=== PATIENT | male | born 1955 | race Caucasian/White ===

== ENCOUNTER → 2018-12-04 | Outpatient (CLI) | payer OTHER ==
--- NOTE | 2018-12-04 11:45 | 2DMMODE ---
[facility] [address] [place] [address] 2 D/M-MODE ECHOCARDIOGRAM Name: CINTIAROYER PAULA Room [facility]: [id number] ������������� Admission: 12/04/18 ������������� Attend Phys: Talon Leigh Discharge: ��� ������������� ��� Date of : 59 Date of Service: 12/04/18 1145 �� Report #: [id number] �������� ��������������������������������������������[id number] THIS REPORT FOR: //name// APPROVED REPORT Study performed: 12/04/2018 11:01:17 EXAM: Comprehensive 2D, Doppler, and color-flow Echocardiogram Patient Location: Out-Patient Status: routine BSA: 2.17 HR: 72 bpm BP: 144/83 mmHg Rhythm: NSR Other Information Study Quality: Good Indications Hypertension, family history of heart disease. 2D Dimensions RVDd: 37.63 mm IVSd: 8.73 (7-11mm) LVOT Diam: 20.45 (18-24mm) LVDd: 56.16 mm PWd: 10.07 (7-11mm) Ascending Ao: 30.30 (22-36mm) LVDs: 37.84 (25-40mm) Aortic Root: 37.49 mm Volumes Left Atrial Volume (Systole) Single Plane 4CH: 60.96 mL Single Plane 2CH: 57.63 mL LA ESV Index: 31.00 mL/m2 Aortic Valve AoV Peak Jude.: 1.52 m/s AO Peak Gr.: 9.27 mmHg LVOT Max P.37 mmHg LVOT Max V: 1.16 m/s MICHELE Vmax: 2.50 cm2 Mitral Valve E/A Ratio: 0.9 MV Decel. Time: 256.33 ms MV E Max Jude.: 0.64 m/s [facility] [address] [place] [address] 2 D/M-MODE ECHOCARDIOGRAM Name: ROYER CHAMBERLAIN Room #: [facility]#: [id number] ������������� Admission: 12/04/18 ������������� Attend Phys: Talon Leigh Discharge: ��� ������������� ��� Date of : 59 Date of Service: 12/04/18 1145 �� Report #: [id number] �������� ��������������������������������������������[id number] MV A Jude.: 0.75 m/s MV PHT: 74.33 ms IVRT: 92.27 ms Pulmonary Valve PV Peak Jude.: 1.48 m/s PV Peak Gr.: 8.71 mmHg Pulmonary Vein P Vein S: 0.70 m/s P Vein A: 0.34 m/s P Vein D: 0.45 m/s P Vein A Dur.: 96.9 msec P Vein S/D Ratio: 1.56 Tricuspid Valve TR Peak Jude.: 1.86 m/s RAP Estimate: 5.00 mmHg TR Peak Gr.: 13.91 mmHg PA Pressure: 19.00 mmHg Left Ventricle The left ventricle is normal size. There is normal LV segmental wall motion. There is normal left ventricular wall thickness. The left ventricular systolic function is normal. LVEF is 60%. Mild diastolic dysfunction is present (impaired relaxation pattern). Right Ventricle The right ventricle is normal size. The right ventricular systolic function is normal. Atria The left atrium size is normal. The right atrium size is normal. Aortic Valve The aortic valve is normal in structure. No aortic regurgitation is present. There is no aortic valvular stenosis. Mitral Valve The mitral valve is normal in structure. Trace mitral regurgitation. No evidence of mitral valve stenosis. Tricuspid Valve The tricuspid valve is normal in structure. Trace tricuspid regurgitation. Estimated PAP is 20mmHg. Pulmonic Valve The pulmonary valve is normal in structure. Mild pulmonic regurgitation. [facility] [address] [place] [address] 2 D/M-MODE ECHOCARDIOGRAM Name: ROYER CHAMBERLAIN Room #: REG Starla#: [id number] ������������� Admission: 12/04/18 ������������� Attend Phys: Talon Leigh Discharge: ��� ������������� ��� Date of : 59 Date of Service: 12/04/18 1145 �� Report #: [id number] �������� ��������������������������������������������[id number] Great Vessels The aortic root is normal in size. The ascending aorta is normal in size. IVC is normal in size and collapses >50% with inspiration. Pericardium There is no pericardial effusion. <Conclusion> The left ventricle is normal size. LVEF is 60%. The aortic valve is normal in structure. The mitral valve is normal in structure. Trace mitral regurgitation. The tricuspid valve is normal in structure. Trace tricuspid regurgitation. Estimated PAP is 20mmHg. The pulmonary valve is normal in structure. Mild pulmonic regurgitation. There is no pericardial effusion. ��������������������������������������������� <ELECTRONICALLY SIGNED> ���������������������������������������� By: Talon Vazquez MD ��������������������������������������������� 12/04/18 1145 1145 1145 Talon Vazquez MD /INF
== END ==
LOC: NUC 06:26
DX: I37.1 Nonrheumatic pulmonary valve insufficiency (principal); I10 Essential (primary) hypertension; I25.10 Atherosclerotic heart disease of native coronary artery without angina pectoris; Z87.891 Personal history of nicotine dependence; Z82.49 Family history of ischemic heart disease and other diseases of the circulatory system